=== PATIENT | male | born 1985 | race Caucasian/White ===

== ENCOUNTER 2019-12-31 20:57 | Emergency (ER) | payer SELFPAY ==
--- NOTE | 2019-12-31 21:21 | EDM.PDOCBH ---
ED HPI GENERAL MEDICAL PROBLEM - General Chief Complaint: Drug or Alcohol Abuse Stated Complaint: EMS ARRIVAL Time Seen by Provider: 12/31/19 21:11 Source of Information: Reports: Patient History Limitations: Reports: Intoxication - History of Present Illness INITIAL COMMENTS - FREE TEXT/NARRATIVE: CC: Intoxication HPI: This is a pleasant 34-year-old male that is a alcoholic who ran out of alcohol today and brought a large bottle of Listerine and drink three quarters of that presents here today wishing treatment for his alcohol abuse. No trauma no falls no vomiting PMHX/PSHX: Alcoholism Social History: Negative for tobacco, positive for alcohol, negative for street drugs or marijuana Family history: Hypertension ROS: see chart PE: VS afebrile vital signs stable General: No apparent distress. Overtly intoxicated Head: Atraumatic normocephalic no lumps bumps or bruises Eyes: EOMI PERRLA scera white, conjuntiva pink Ears: TMs intact. No hemotympanum. No signs of infection or mastoid tenderness Nose: No epistaxis. Nares patent. No septal wall hematoma Throat: No pharyngeal erythema, exudate or tonsillar enlargement Neck: Supple. No cervical lymphadenopathy Chest wall: No point tenderness Heart: Regular rate and rhythm without murmur gallop or rub Lungs: Clear to auscultation and percussion without rale, rhonchi or wheeze. Abdomen: Soft nontender nondistended without guarding rigidity or rebound. Bowel sounds present. Neck: No spinal point tenderness full range of motion in all 6 directions Back: No spinal paraspinal or CVA tenderness Extremities: Full range of motion through out. No effusions Skin: Warm, dry and intact. No rashes, erythema or warmth Neurologic: Cranial nerves II through XII intact bilaterally. No focal motor or sensory deficits noted MDM: Differential diagnosis: etOH intoxication ED course: Serum alcohol under 300. Rest of the labs look unremarkable. No signs of any toxidromes. Patient to be admitted to a rehab center for further evaluation and treatment of his chronic alcoholism Final Diagnosis: Intoxication Disposition:transfer - Related Data Allergies Allergy/AdvReac Type Severity Reaction Status Date / Time No Known Allergies Allergy Verified 12/31/19 21:32 Home Meds: Home Meds diazePAM [Valium] 20 mg PO DAILY PRN 12/31/19 [History] ED ROS GENERAL - Review of Systems Review Of Systems: Comprehensive ROS is negative, except as noted in HPI. ED EXAM, BEHAVIORAL HEALTH - Physical Exam Exam: See Below Text/Narrative:: see my note COURSE, BEHAVIORAL HEALTH COMP - Course Vital Signs: Last Vital Signs Temp 36.9 C 12/31/19 22:57 Pulse 103 H 12/31/19 22:57 Resp 18 12/31/19 22:57 BP 138/88 12/31/19 22:57 Pulse Ox 93 L 12/31/19 22:57 Orders, Labs, Meds: Laboratory Tests 12/31/19 12/31/19 12/31/19 Range/Units 21:27 21:27 22:05 WBC 4.82 (4.0-11.0) K/uL RBC 4.85 (4.50-5.90) M/uL Hgb 14.7 (13.0-17.0) g/dL Hct 43.5 (38.0-50.0) % MCV 89.7 (80.0-98.0) fL MCH 30.3 (27.0-32.0) pg MCHC 33.8 (31.0-37.0) g/dL RDW Std Deviation 39.6 (28.0-62.0) fl RDW Coeff of Kristin 12 (11.0-15.0) % Plt Count 247 (150-400) K/uL MPV 9.70 (7.40-12.00) fL Neut % (Auto) 44.2 L (48.0-80.0) % Lymph % (Auto) 39.2 (16.0-40.0) % Dyer % (Auto) 14.9 (0.0-15.0) % Eos % (Auto) 1.5 (0.0-7.0) % Baso % (Auto) 0.2 (0.0-1.5) % Neut # (Auto) 2.1 (1.4-5.7) K/uL Lymph # (Auto) 1.9 (0.6-2.4) K/uL Dyer # (Auto) 0.7 (0.0-0.8) K/uL Eos # (Auto) 0.1 (0.0-0.7) K/uL Baso # (Auto) 0.0 (0.0-0.1) K/uL Nucleated RBC % 0.0 /100WBC Nucleated RBCs # 0 K/uL Sodium 144 (136-148) mmol/L Potassium 3.5 (3.5-5.1) mmol/L Chloride 108 H (98-107) mmol/L Carbon Dioxide 26.7 (21.0-32.0) mmol/L BUN 4 L (7.0-18.0) mg/dL Creatinine 0.8 (0.8-1.3) mg/dL Est Cr Clr Drug Dosing 148.42 mL/min Estimated GFR (MDRD) > 60.0 ml/min Glucose 93 (74-106) mg/dL Calcium 7.9 L (8.5-10.1) mg/dL Total Bilirubin 0.2 (0.2-1.0) mg/dL AST 67 H (15-37) IU/L ALT 137 H (14-63) IU/L Alkaline Phosphatase 75 (46-116) U/L Total Protein 7.0 (6.4-8.2) g/dL Albumin 3.5 (3.4-5.0) g/dL Globulin 3.5 (2.6-4.0) g/dL Albumin/Globulin Ratio 1.0 (0.9-1.6) Urine Opiates Screen NEGATIVE (NEGATIVE) Ur Oxycodone Screen NEGATIVE (NEGATIVE) Urine Methadone Screen NEGATIVE (NEGATIVE) Ur Barbiturates Screen NEGATIVE (NEGATIVE) Ur Phencyclidine Scrn NEGATIVE (NEGATIVE) Ur Amphetamine Screen NEGATIVE (NEGATIVE) U Methamphetamines Scrn NEGATIVE (NEGATIVE) U Benzodiazepines Scrn POSITIVE (NEGATIVE) U Cocaine Metab Screen NEGATIVE (NEGATIVE) U Marijuana (THC) Screen NEGATIVE (NEGATIVE) Ethyl Alcohol 276 mg/dL Departure - Departure Time of Disposition: 23:32 Disposition: DC/Tfer to [facility] Clinical Impression: Alcohol abuse - Discharge Information Referrals: PCP,Not In Area [Primary Care Provider] - Forms: ED Department Discharge Sepsis Event Note - Evaluation Sepsis Screening Result: No Definite Risk - Focused Exam Vital Signs: Vital Signs Temp Pulse Resp BP Pulse Ox 12/31/19 22:57 36.9 C 103 H 18 138/88 93 L 12/31/19 21:00 36.9 C 112 H 18 151/95 H 95 Date Exam was Performed: 12/31/19 Time Exam was Performed: 23:30
[2019-12-31 21:56] LABS: BLOOD UREA NITROGEN,BUN 4 mg/dL (7.0-18.0); CARBON DIOXIDE,CO2 26.7 mmol/L (21.0-32.0); CHLORIDE,CL 108 mmol/L (98-107); GLUCOSE RANDOM 93 mg/dL (74-106); POTASSIUM,K 3.5 mmol/L (3.5-5.1); SODIUM,NA 144 mmol/L (136-148)
== END 2020-01-01 ==
LOC: MW.ED 20:57
DX: F10.129 Alcohol abuse with intoxication, unspecified (principal); Y90.8 Blood alcohol level of 240 mg/100 ml or more
CPT/HCPCS: 36415; 80053; 80305-QW; 80307; 85025; 99283; 99285